=== PATIENT | male | born 1990 | race Hispanic/Latino ===

== ENCOUNTER 2017-02-01 14:50 | Emergency (ER) | payer MEDICARE ==
--- NOTE | 2017-02-01 15:56 | Emergency Department Report ---
Chief Complaint: Psych Stated Complaint: MED CLEARANCE/FOR [place]/DETOX Time Seen by Provider: 02/01/17 15:50 - HPI History of Present Illness: abuses heroin and meth wants help also on fent patch for his pain morphine hurts his stomach fam problems pmh choley and chronic back pain constricted threatened to take 20 pills Fri to do himself in here for . MSE screening note: Focused history and physical exam performed. Due to findings the following was ordered: ED Disposition for MSE Condition: Stable
[2017-02-01 16:32] LABS: Basophils % (Auto) 0.9 % (0.0-1.8); Eosinophils % (Auto) 0.6 % (0.0-4.3); Hematocrit 38.5 % (35.5-45.6); Hemoglobin 13.1 gm/dl (11.8-15.2); Mean Corpuscular HGB Conc 34 % (32-34); Mean Corpuscular Hemoglobin 26 pg (28-32); Mean Corpuscular Volume 77 fl (84-94); Platelet Count 204 K/mm3 (140-440); Red Blood Count 5.03 M/mm3 (3.65-5.03); Red Cell Distribution Width 14.3 % (13.2-15.2); White Blood Count 10.7 K/mm3 (4.5-11.0)
[2017-02-01 17:01] LABS: Alanine Aminotransferase 24 units/L (7-56); Albumin 4.4 g/dL (3.9-5); Albumin/Globulin Ratio 1.5 %; Alkaline Phosphatase 107 units/L (35-129); Anion Gap 18 mmol/L; Blood Urea Nitrogen 15 mg/dL (9-20); Calcium 9.4 mg/dL (8.4-10.2); Carbon Dioxide 24 mmol/L (22-30); Chloride 103.1 mmol/L (98-107); Glucose 92 mg/dL (75-100); Sodium 141 mmol/L (137-145); Total Protein 7.3 g/dL (6.3-8.2)
[2017-02-02 10:21] LABS: Urine Drugs of Abuse Note Disclamer
--- NOTE | 2017-02-02 10:24 | Emergency Department Report ---
ED Psych HPI - General Chief Complaint: Medical Clearance Stated Complaint: MED CLEARANCE/FOR [place]/DETOX Time Seen by Provider: 02/02/17 10:16 Source: patient, RN notes reviewed Mode of arrival: Ambulatory Limitations: No Limitations - History of Present Illness Initial Comments: 26-year-old male presents to the emergency department for medical clearance for mental health evaluation. Patient states for the past 2-3 days he has been feeling extremely depressed. He states he does not feel like anybody is there for him anymore. He reports occasional suicidal thoughts, but denies plan. He denies auditory or visual hallucinations. There are no other complaints. MD Complaint: suicidal ideation, feels depressed -: Gradual, days(s) (3) Associated Psychiatric Symptoms: depression, suicidal ideation History of same: No Quality: constant, getting worse Improves With: none Worsens With: none Context: significant life stressor Associated Symptoms: denies other symptoms Treatments Prior to Arrival: none If Self Harm: admits thoughts of - Related Data Allergies Allergy/AdvReac Type Severity Reaction Status Date / Time morphine Allergy Nausea Verified 02/01/17 15:54 ED Review of Systems ROS: Stated complaint: MED CLEARANCE/FOR [place]/DETOX Other details as noted in HPI Comment: All other systems reviewed and negative Psychiatric: depression, suicidal thoughts ED Past Medical Hx - Past Medical History Previous Medical History?: No - Surgical History Past Surgical History?: Yes Hx Cholecystectomy: Yes - Family History Family history: no significant - Social History Smoking Status: Current Every Day Smoker Substance Use Type: Heroin, Prescribed ED Physical Exam - General Limitations: No Limitations General appearance: alert, in no apparent distress - Head Head exam: Present: atraumatic, normocephalic - Eye Eye exam: Present: normal appearance, PERRL, EOMI - ENT ENT exam: Present: normal exam, normal orophraynx, mucous membranes moist - Neck Neck exam: Present: normal inspection, full ROM. Absent: tenderness - Respiratory Respiratory exam: Present: normal lung sounds bilaterally. Absent: respiratory distress - Cardiovascular Cardiovascular Exam: Present: regular rate, normal rhythm, normal heart sounds - GI/Abdominal GI/Abdominal exam: Present: soft, normal bowel sounds. Absent: distended, tenderness - Extremities Exam Extremities exam: Present: normal inspection, full ROM. Absent: tenderness - Back Exam Back exam: Present: normal inspection, full ROM. Absent: tenderness - Neurological Exam Neurological exam: Present: alert, oriented X3. Absent: motor sensory deficit - Skin Skin exam: Present: warm, dry, intact ED Course Vital Signs 02/01/17 02/02/17 02/02/17 15:55 06:25 09:29 Temperature 98.2 F 98.1 F 98.7 F Pulse Rate 68 82 81 Respiratory 18 20 18 Rate Blood Pressure 142/92 Blood Pressure 102/68 136/87 [Left] O2 Sat by Pulse 98 99 Oximetry 02/02/17 09:42 Temperature Pulse Rate Respiratory 18 Rate Blood Pressure Blood Pressure [Left] O2 Sat by Pulse 99 Oximetry ED Medical Decision Making - Lab Data Result diagrams: 02/01/17 16:16 02/01/17 16:16 - Medical Decision Making Lab results reviewed. Patient has been medically cleared. Form 1013 will be signed and placed on the patient's chart. Patient is awaiting mental health evaluation for placement. - Differential Diagnosis depression, suicidal ideation Critical care attestation.: If time is entered above; I have spent that time in minutes in the direct care of this critically ill patient, excluding procedure time. ED Disposition Clinical Impression: Suicidal ideation Major depression Qualifiers: Major depression recurrence: single episode Active/Remission status: currently active Major depression episode severity: moderate Qualified Code(s): F32.1 - Major depressive disorder, single episode, moderate Disposition: DC/TX PSY HOSP/PSY UNIT Is pt being admited?: No Condition: Stable Referrals: BOB NEVILLE MD [Primary Care Provider] - 3-5 Days Time of Disposition: 10:24
[2017-02-02 10:43] LABS: Bilirubin,Urine NEG (Negative); Blood,Urine NEG (Negative); Ketones,Urine NEG (Negative); Leukocyte Esterase,Urine NEG (Negative); Mucus,Urine FEW /HPF; Nitrite,Urine NEG (Negative); Protein,Urine <15 mg/dL mg/dL (Negative); Urobilinogen,Urine < 2.0 mg/dL (<2.0)
[2017-02-02 22:09] VITALS: BP 145/76
== END 2017-02-02 21:45 ==
LOC: EEVIPCON 14:50 → ED 14:50
DX: R45.851 Suicidal ideations (principal); F32.1 Major depressive disorder, single episode, moderate; F17.200 Nicotine dependence, unspecified, uncomplicated; Z90.49 Acquired absence of other specified parts of digestive tract; Z88.5 Allergy status to narcotic agent
CPT/HCPCS: 36415; 80053; 80307; 81001; 84443; 85025; 99285; G0480; 80320